=== PATIENT | male | born 1965 | race Caucasian/White ===

== ENCOUNTER 2017-02-03 21:22 | Emergency (ER) | payer BC ==
--- NOTE | 2017-02-03 21:50 | RAD ---
INDICATION: Intracranial injury COMPARISON: None TECHNIQUE: Noncontrast axial source images were acquired from the skull base to the vertex. FINDINGS: Ventricles/sulci: The ventricles and cisterns are normal in size and configuration for age. Incidental note is made of magna cisterna magna Brain parenchyma: There is no focal parenchymal finding, evidence of intracranial mass, or intracranial mass effect. Intracranial hemorrhage:None. Extra-axial spaces: There are no abnormal extra axial fluid collections or evidence of extra-axial mass. Calvarium: There is no calvarial fracture or other calvarial abnormality. Scalp: There is no evidence of scalp or extracalvarial soft tissue abnormality. Paranasal sinuses/mastoid: The paranasal sinuses and mastoid air cells are clear. Other: None. IMPRESSION: NEGATIVE EXAMINATION
--- NOTE | 2017-02-03 22:06 | RAD ---
INDICATION: Left shoulder pain COMPARISON: None TECHNIQUE: Routine frontal and Y views were obtained. FINDINGS: There is a displaced oblique fracture of the mid and distal clavicle with comminution and angular deformity. There are no other acute fractures. There is mild inflammatory or degenerative change about the inferior glenoid. There is soft tissue swelling about the clavicular fracture. IMPRESSION: CLAVICULAR FRACTURE DESCRIBED.
[2017-02-03 22:39] LABS: Hematocrit 44 % (42-52); Mean Corpuscular HGB Conc 34 g/dl (31-36); Mean Corpuscular Hemoglobin 32 pg (27-31); Mean Corpuscular Volume 91 fL (80-94); Mean Platelet Volume 7 um3 (7.4-10.4); Red Blood Count 4.78 10^6/ul (4.0-5.4); Red Cell Distribution Width 13 % (10.5-15); White Blood Count 15.8 10^3/ul (3.5-10.8)
[2017-02-03] MEDS ORDERED: Ibuprofen TAB* 400 MG PO ONE (22:44)
[2017-02-03] MEDS ORDERED: Ibuprofen TAB* 400 MG ONE (22:45)
[2017-02-03 22:54] LABS: Albumin 4.7 g/dL (3.2-5.2); BUN/Creatinine Ratio 15.5 (8-20); Calcium 9.8 mg/dL (8.6-10.3); EGFR African American 124.4 (>60); EGFR Non-African American 96.7 (>60); Globulin 3.1 g/dL (2-4); Total Bilirubin 0.8 mg/dL (0.2-1.0); Total Protein 7.8 g/dL (6.4-8.9)
--- NOTE | 2017-02-03 23:03 | RAD ---
INDICATION: Left clavicular fracture COMPARISON: Chest x-ray 2009; left shoulder same date TECHNIQUE: An AP portable view obtained at 2235 hours is submitted. FINDINGS: Bones/Soft Tissues: There is a left clavicular fracture described in a separate report. Cardiomediastinal: The cardiomediastinal silhouette is normal. Lungs: There are no infiltrates. Pleura: There are no pleural effusions. Other: None IMPRESSION: LUNGS CLEAR. NO PNEUMOTHORAX. LEFT CLAVICULAR FRACTURE.
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
[2017-02-04] MEDS ORDERED: Ketorolac INJ* 60 MG/2 ML VIAL IM ONE (01:52)
[2017-02-04] MEDS ORDERED: Ketorolac INJ* 30 MG/ML 1 ML VIAL IV PUSH ONE (02:34)
[2017-02-04 04:23] LABS: Benzodiazepine Urine Screen None Detected (None Detect)
[2017-02-04 05:09] VITALS: BP 150/99
--- NOTE | 2017-02-04 07:53 | RAD ---
HISTORY: Trauma, neck pain COMPARISONS: None TECHNIQUE: Multiple contiguous axial CT scans were obtained of the cervical spine without intravenous contrast, with coronal and sagittal multiplanar reformations. FINDINGS: BRAIN: The visualized brain is unremarkable CENTRAL CANAL: Evaluation of the central canal is limited on CT technique; however, there is no obvious canalicular mass or epidural hemorrhage. ALIGNMENT: The alignment is normal, without subluxation or dislocation. VERTEBRAL BODIES: The odontoid process is intact. The atlantoaxial intervals are symmetric. The vertebral bodies are normal in attenuation, without fracture. JOINTS: There is mild osteoarthritis of the uncovertebral and facet articulations. MUSCULATURE: Unremarkable INTERVERTEBRAL DISCS: There is mild diffuse loss of intervertebral disc height. AXIAL IMAGES: On axial images, there is no significant osseous neural foraminal narrowing or central canal stenosis. SOFT TISSUES: The visualized soft tissues of the neck are unremarkable. The prevertebral fat stripe is preserved. OTHER: None. IMPRESSION: NO ACUTE OSSEOUS INJURY TO THE CERVICAL SPINE.
[2017-02-04] MEDS ORDERED: Ibuprofen TAB* 600 MG PO ONE (09:32)
--- NOTE | 2017-02-04 11:42 | CONSULT ---
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 He underwent MHE and they wanted to keep him here in the FLEX until collateral info could be obtained. This morning Dr. Sales felt he was safe for D/C and he will be D/C'd in stable condition with a diagnosis of acute ETOH intoxication , clavicular fracture, LOC, and situational depression.
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
== END 2017-02-04 11:04 | disposition home or self-care (01) ==
LOC: ED 21:22 → UNDOADMOB 02-04 00:29 → MEDTELE 02-04 00:29 → ED 02-04 11:04
DX: S42.009A Fracture of unspecified part of unspecified clavicle, initial encounter for closed fracture (principal); S06.0X1A Concussion with loss of consciousness of 30 minutes or less, initial encounter; R55 Syncope and collapse; R45.851 Suicidal ideations; F10.129 Alcohol abuse with intoxication, unspecified; Y90.7 Blood alcohol level of 200-239 mg/100 ml; M25.512 Pain in left shoulder; V19.9XXA Pedal cyclist (driver) (passenger) injured in unspecified traffic accident, initial encounter; Y93.55 Activity, bike riding; Y92.9 Unspecified place or not applicable
CPT/HCPCS: 36415; 70450; 71010; 72125; 80053; 80307; 80320; 84484; 85025; 93005; 96372; 99284; A9270-GY; G0480

== ENCOUNTER 2017-02-15 09:18 | Day surgery (SDC) | payer BC ==
[~2017-02-15 09:18] MED LIST: Buffered Lidocaine 1% SYRIN* 3 ML/SYR SYRINGE INTRADERM ONE; Dexamethasone IV* 4 MG/ML 1 ML (4 MG) IV SLOW PU ONE; Famotidine IV* 10 MG/ML 2 ML (20 mg) IV ONE
[2017-02-15] MEDS ORDERED: Famotidine IV* 10 MG/ML 2 ML (20 mg) ONE (09:19)
[2017-02-15] MEDS ORDERED: Dexamethasone IV* 4 MG/ML 1 ML (4 MG) ONE (09:19)
[2017-02-15] MEDS ORDERED: ceFAZolin 2 GM PREMIX(*) 2 GM/50 ML BAG IVPB ONE (09:19)
[2017-02-15] MEDS ORDERED: Atracurium* 10 MG/ML 10 ML VIAL ONE (09:34)
[2017-02-15] MEDS ORDERED: Midazolam* 1 MG/ML 5 ML VIAL (5 MG) ONE (09:34)
[2017-02-15] MEDS ORDERED: fentaNYL* 50 MCG/ML 5 ML VIAL (250 MCG VIAL) ONE (09:34)
[2017-02-15] MEDS ORDERED: Ondansetron INJ* 2 MG/ML VIAL ONE (09:35)
[2017-02-15] MEDS ORDERED: Lidocaine 2% PF * 5 ML VIAL ONE (09:35)
[2017-02-15] MEDS ORDERED: Propofol* 10 MG/ML 20 ML BTL IV PUSH ONE (09:35)
[2017-02-15] MEDS ORDERED: Ketorolac INJ* 30 MG/ML 1 ML VIAL ONE (09:35)
[2017-02-15] MEDS ORDERED: fentaNYL* 50 MCG/ML 2 ML VIAL (100 MCG VIAL) ONE ×2 (10:35→13:51)
[2017-02-15] MEDS ORDERED: Glycopyrrolate IV* 0.2 MG/ML 1 ML VIAL ONE (10:42)
[2017-02-15] MEDS ORDERED: Desflurane* 240 ML INH ONE (10:43)
[2017-02-15] MEDS ORDERED: HYDROmorphone* 1 MG/ML 1 ML SYR IV PRN (12:02)
[2017-02-15] MEDS ORDERED: Ondansetron INJ* 2 MG/ML VIAL IV PRN (12:02)
[2017-02-15] MEDS ORDERED: Scopolamine 1.5 mg* PATCH TRANSDERM PRN (12:02)
[2017-02-15] MEDS ORDERED: DiMENhydriNATE IV* 50 MG/ML VIAL IV PUSH PRN (12:02)
[2017-02-15] MEDS ORDERED: Bupivacaine 0.5% W/EPI SDV* 30 ML VIAL ONE (13:14)
[2017-02-15] MEDS: fentaNYL* 50 MCG/ML 2 ML VIAL (100 MCG VIAL) IV PRN ×2 (13:52→13:55)
[2017-02-15] MEDS: oxyCODONE/Acetamin 5/325 MG* TAB PO PRN ×2 (13:57→14:16)
[2017-02-15] MEDS ORDERED: oxyCODONE/Acetamin 5/325 MG* TAB ONE ×2 (13:57→14:15)
--- NOTE | 2017-02-15 13:58 | RAD ---
INDICATION: Traumatic fracture of the left clavicle, operative reduction and internal fixation. COMPARISON: Comparison is made with a prior x-ray study of the left clavicle from February 07, 2017. TECHNIQUE: 52 seconds of intermittent fluoroscopic guidance were provided and 5 spot films of the left clavicle were obtained in the operating room. FINDINGS: The films demonstrate placement of a metallic plate present along the superior aspect of the left clavicle and inferior aspect of the acromion process transfixed with multiple screws. The bones are in normal alignment. IMPRESSION: INTRAOPERATIVE CONTROL FILMS. CPT II Codes: 6045F
[2017-02-15 15:01] VITALS: BP 139/96
--- NOTE | 2017-02-17 19:02 | OP ---
OPERATIVE REPORT: DATE OF OPERATION: 02/15/17 DATE OF : 67 SURGEON: Ed Hills MD ENGINEERING AGENT: TAD Alvarado ANESTHESIOLOGIST: Joseph Beth MD ANESTHESIA: General anesthesia, local anesthesia. PRE-OP DIAGNOSIS: Left lateral/distal clavicle fracture. POST-OP DIAGNOSIS: Left lateral/distal clavicle fracture. OPERATIVE PROCEDURE: Open reduction internal fixation, left lateral/distal clavicle fracture with acromion hook plate. 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 The patient was mountain biking with his son and a friend. The patient had an unwitnessed fall, which he does not remember and was diagnosed with concussion and a left lateral clavicle fracture in the emergency department. The patient is fortunate that he has not had any post- concussive symptoms besides some dizziness, light, once. The patient is active and athletic, as he sails, and has aspirations to sail around the world at some point. He also rows and sculls. He bikes and cross- country skis. He wanted to make particular mention of the fact that he is an aggressive cross-country skier with tall poles that require a very full range of motion in the shoulder and a forceful flexion and extension of the shoulder. 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 Jesse Funez, and involved ORIF of the right scaphoid, elbow lateral epicondyle and tendon transfers for loss of extensor tendon function. The patient states that the amputation was even considered at some point prior to all these surgeries. The patient is happy that he has mostly functional right hand, but that injury left him even more reliant on his left upper extremity. Preoperative x-ray imaging demonstrated a comminuted fracture of the left lateral clavicle with significant displacement. There appeared at least 2 cm of displacement between the principal fracture fragments. It appeared to be a type 5 lateral clavicle fracture, comminuted, with medial shaft fragments, and inferior fragment, likely attached to one or two of the coracoclavicular ligaments, and a lateral most fragment of the distal clavicle. There was a hint of comminution to that most lateral fragment and to get a better visualization of this fragment to determine pre-op the most likely proper surgical management intraop, I obtained a CT scan as well, which showed that the lateral most fragment was in fact 2 or 3 fragments of bone. As I measured the length of this lateral fragment most superiorly, it was clear that it was short of 7 mm, so that a superior plate and screw with or without tape in all likelihood would not be a feasible solution surgically. Therefore with surgery , the patient will require an acromion hook plate. The patient and I spoke at length at 2 appointments about the possible treatment of this injury without and with surgery. I did stress the elective nature of the surgery and that, while 30% to 50% of these fractures result in bony nonunion, many of those nonunions are pain free. However, given the patient's young age and high function, both with activities of daily living and certainly with athletics, the significant displacement of this fracture site would likely mean reduced function and possibly discomfort and limitations if managed nonoperatively. Therefore, we opted for surgical management of this fracture. I discussed the significant list of possible complications of this surgery, including nerve and blood vessel injury, nonunion, hardware complications. Also included specific to the acromion hook plate including acromion osteolysis, rotator cuff injury, AC joint arthritis, and hardware pull- out. The patient opted to proceed with surgery. ANTIBIOSIS: Ancef 2 g IV. IV FLUIDS: See Anesthesia note. COMPLICATIONS: None. ESTIMATED BLOOD LOSS: Minimal. SPECIMEN: None. IMPLANTS: Synthes 6-hole locking acromion hook plate. 6 screws, 3.5 mm through the plate, non-locking and locking. DESCRIPTION OF THE PROCEDURE: Preoperative written consent was obtained. Operative extremity was marked in preoperative holding. The patient was taken to the operating room and placed supine on operating room table. The patient was sedated and intubated. An extension had been placed on the table so that a head rest would fit in. The bed was positioned in the beach-chair position. A strap was placed above the torso. Many pillows were placed under the thighs to enable hip flexion. The beach-chair position was such that the torso was approximately 70 degrees flexed compared with the ground. The left shoulder was prepped and draped. Surgical time-out was performed. I used a marking pin to nam the medial and lateral fragments of bone, the AC joint, the acromion, and the coracoid process, although it was difficult to feel the coracoid process. I then made a skin incision with a 10 blade, overlying the mid and distal clavicle and proceeding to just lateral of the AC joint. Incision was carried down through a subcutaneous tissue with a deep #10 blade. Then, dissection was continued with cutting function of an insulated Bovie electrocautery tip. Hemostasis was established using Bovie electrocautery as well as sponges and pressure. I dissected down through the platysmas and the deltotrapezial fascia using the Bovie electrocautery. I dissected down on to the clavicle fragments. I cleared them off using Bovie electrocautery and a wood-handled periosteal elevator. The medial fragment as had been visualized on imaging was superiorly displaced. The lateral most fragment of clavicle was indeed incredibly small, approximately 5 mm by sight, although I did not measure it. It was incredibly small and seemed comminuted to the appearance and touch. I localized the AC joint using a spinal needle, but I did not dissect down on to it and certainly did not dissect into it. The acromion was palpable posterior to the AC joint, but I did not have to cut through any fascia to get around it. My finger essentially easily passed down under the acromion there after I had had made my deltotrapezial dissection. With my fingers, reduced the clavicle and saw that it was reducible. I identified the inferior fragments of bone as well. Irrigation. Debridement of the medial and inferior bone fragments as well as the lateral with curette and rongeur. Looking at the bony fragments, it was clear that superior plate and screws would not be feasible even with coracoclavicular tape. Therefore, I decided to proceed forward with the acromion hook plate. I used the Synthes 15-mm sizer and found that 15 mm was the correct depth of hook plate to use as it nicely reduced the bony fragments appropriately. This was preferable to the 12- and 18-mm sizers. While [employer] did not have template for the plate lengths, given the very medial extent of the fracture line between the inferior and medial bone fragments, I choose a long plate, a 6- hole hook plate. There were concerns that if I chose a 7-hole plate, a significant amount of plate bending would be required to fit the clavicle's shape. Therefore, individually packed 6-hole plate was opened and was placed in the wound. It nicely reduced the fracture fragments. Two nonlocking screws were placed in two of the medial most holes in the plate. I then obtained images, AP view, serendipity view, and the most vertical x-ray views I could obtain using C-arm, brought in from directly posterior to the shoulder. Reduction looked excellent in every plane. On one view, there was a small amount of space between the inferior and medial fracture fragments, but the overall alignment was excellent and there was no way yo improve upon that trace gapping between the medial and inferior fragments. The remainder of the screw holes overlying the medial and inferior fragments was filled with nonlocking and locking screws. I considered placement of screws into the lateral fragment , but given the very small size of the lateral fragment and its comminution, I did not want to explode it and cause more comminution by placing a screw through it. It should be mentioned that I confirmed digitally and visually perfect reduction of the lateral and medial fracture fragments both before and after the acromion hook plate was placed and was very satisfied with that. Also , radiographically it looked like an excellent reduction. Final x-ray films were taken and saved of the acromion hook plate and the [address] I then tested the range of motion of the shoulder as this is a recommended step. I was able to obtain 90 degrees as external rotation with the shoulder in the abducted position. I was able to abduct to at least 110 degrees. Further abduction was limited by my draping, not by the plate in the shoulder. Irrigation. The deltotrapezial fascia was closed with figure-of-8 stitches using Vicryl 0 suture. The subcutaneous tissue was closed with buried simple stitches using Vicryl 2-0 suture. The subcuticular layer was closed with a running stitch using Monocryl 4-0 suture. Mastisol, Steri-Strips, 4x4s, Tegaderm. The patient was returned to a supine position and awakened and extubated. DISPOSITION: Postoperatively, the patient was to get Percocet, aspirin, and Keflex, and follow up with me 10 to 14 days postoperatively. [id number]/[facility] #: [id number] MTDD
[2017-02-18] MEDS ORDERED: Scopolomine PATCH Remove* 1 NOTE MISC PATCH OFF ONE (12:03)
== END 2017-02-15 16:29 | disposition home or self-care (01) ==
LOC: OR 09:18
PROVIDERS: ATTEND Orthopaedic Surgery
DX: S42.032A Displaced fracture of lateral end of left clavicle, initial encounter for closed fracture (principal); V18.0XXA Pedal cycle driver injured in noncollision transport accident in nontraffic accident, initial encounter; Y93.55 Activity, bike riding; Y92.89 Other specified places as the place of occurrence of the external cause
CPT/HCPCS: 76001; A9270-GY; C1713; C1776; J0690; J1100; J1885; J2250; J2405; J2704; J3010

== ENCOUNTER 2017-07-12 09:57 | Day surgery (SDC) | payer BC ==
[~2017-07-12 09:57] MED LIST changes: +Buffered Lidocaine 0.9% SYRIN* 5 ML/SYR SYRINGE INTRADERM ONE; -Buffered Lidocaine 1% SYRIN* 3 ML/SYR SYRINGE INTRADERM ONE; -Dexamethasone IV* 4 MG/ML 1 ML (4 MG) IV SLOW PU ONE
[2017-07-12] MEDS ORDERED: Famotidine IV* 10 MG/ML 2 ML (20 mg) ONE (10:04)
[2017-07-12] MEDS ORDERED: Buffered Lidocaine 0.9% SYRIN* 5 ML/SYR SYRINGE ONE (10:04)
[2017-07-12] MEDS ORDERED: ceFAZolin 2 GM PREMIX (*) 50 ML IVPB ONE (10:04)
[2017-07-12] MEDS ORDERED: Ondansetron INJ* 2 MG/ML VIAL IV PRN (10:07)
[2017-07-12] MEDS ORDERED: Scopolamine 1.5 mg* PATCH TRANSDERM PRN (10:07)
[2017-07-12] MEDS ORDERED: PROCHLORPERAZINE INJ 5 MG/ML 2 ML VIAL IV PRN (10:07)
[2017-07-12] MEDS ORDERED: fentaNYL* 50 MCG/ML 2 ML VIAL (100 MCG VIAL) IV PRN (10:07)
[2017-07-12] MEDS ORDERED: oxyCODONE/Acetamin 5/325 MG* TAB PO PRN (10:07)
[2017-07-12] MEDS ORDERED: Morphine INJ* 2 MG/ML 1 ML CARPUJECT IV PRN (10:07)
[2017-07-12] MEDS ORDERED: fentaNYL* 50 MCG/ML 2 ML VIAL (100 MCG VIAL) ONE (11:21)
[2017-07-12] MEDS ORDERED: KETAMINE HCL* 50 MG/ML 10 ML VIAL ONE (11:22)
[2017-07-12] MEDS ORDERED: Midazolam* 1 MG/ML 5 ML VIAL (5 MG) ONE (11:22)
[2017-07-12] MEDS ORDERED: Propofol* 10 MG/ML 20 ML BTL IV PUSH ONE (12:51)
[2017-07-12] MEDS ORDERED: Lidocaine 2% PF * 5 ML VIAL ONE ×2 (12:51)
[2017-07-12] MEDS ORDERED: Dexamethasone IV* 4 MG/ML 1 ML (4 MG) ONE (12:51)
[2017-07-12] MEDS ORDERED: Ondansetron INJ* 2 MG/ML VIAL ONE (12:51)
[2017-07-12] MEDS ORDERED: Ketorolac INJ* 30 MG/ML 1 ML VIAL ONE (12:51)
[2017-07-12] MEDS ORDERED: Morphine INJ* 10 MG/ML 1 ML CARPUJECT ONE (12:53)
[2017-07-12] MEDS ORDERED: Lidocaine 1.5% EPI 1:200,000* 30 ML SDV ONE (13:08)
[2017-07-12] MEDS ORDERED: hydrALAZINE IV* 20 MG/ML VIAL ONE (14:12)
--- NOTE | 2017-07-12 14:22 | RAD ---
INDICATION: Removal of left clavicle fixation hardware COMPARISONS: July 12, 2017 TECHNIQUE: Fluoroscopy was provided for a surgical procedure. Total fluoroscopy time is: 18 seconds FINDINGS: Spot images demonstrate removal of the fixation hardware of the left clavicle. IMPRESSION: FLUOROSCOPY WAS PROVIDED FOR A SURGICAL PROCEDURE CPT II Codes: 6045F
[2017-07-12 16:04] VITALS: BP 138/90
--- NOTE | 2017-07-14 03:28 | OP ---
DATE OF OPERATION: 07/12/17 [facility] DATE OF : 67 SURGEON: Ed Hills MD ENGINEERING SPECIALIST: TAD Herndon. A physician temporary administrative assistant was required for the length of the procedure for retraction, manipulation and instrumentation. ANESTHESIOLOGIST: Dr. Dorian Garcia. ANESTHESIA: General endotracheal anesthesia, local anesthesia, 10 mL of 1.5% lidocaine with epinephrine. PRE-OPERATIVE DIAGNOSES: 1. Status post open reduction internal fixation left lateral clavicle fracture , displaced, with an acromion hook plate. 2. Retained hardware left acromion hook plate. POST-OPERATIVE DIAGNOSES: 1. Status post open reduction internal fixation left lateral clavicle fracture , displaced, with an acromion hook plate. 2. Retained hardware left acromion hook plate. OPERATIVE PROCEDURE: Left shoulder, removal of hardware, deep. ANTIBIOSIS: 2 g Ancef IV. IV FLUIDS: 1500 mL crystalloid. COMPLICATIONS: None. ESTIMATED BLOOD LOSS: Less than 50 mL. SPECIMEN: Removed Synthes lateral acromion plate as well as six screws that had been placed through the plate. This was kept with plans for processing and return to the patient. IMPLANTS: No new implants. 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 That method of fixation was chosen, rather than a superior clavicle plate plus or minus coracoclavicular fixation, secondary to the extremely comminuted nature of the lateral most aspect of the clavicle that is the reason the acromion hook plate was chosen. Prior to that for surgery, I discussed with the patient that should an acromion hook plate be required, it would need to be removed from 4 to 6 months postoperatively. I had followed the patient after the first procedure. He has been anxious to have the plate removed. His range of motion and strength were excellent, although he did not quite have full range of motion returned with only 160 degrees of forward flexion at the last preoperative clinic visit. We had discussed removing the plate after a sufficient amount of time had passed to allow sufficient healing for the clavicle to be stable, but now waiting so long , such as more than six months, complications such as persistent shoulder stiffness or acromial erosion, could occur. At the last preoperative clinic visit, which was 4 to 5 weeks preoperative, the patient still had some lucency on x-ray but he had no tenderness to palpation whatsoever with vigorous manipulation by me on physical examination and so I decided that just under 5 months, we would allow for adequate healing for the plate to be removed. DESCRIPTION OF PROCEDURE: Preoperative written consent was obtained. As I have discussed in my final clinic visit, so too I discussed the date of surgery , potential complications including bleeding, infection, nerve or blood vessel injury, hardware complications, refracture, shoulder stiffness, shoulder arthritis. Operative extremity was marked in preoperative holding. The patient was taken back to the operating room and placed supine on operating room table. The patient was sedated and intubated. The operative table of choice had an extension with a head rest. The operative table was converted into a beach chair position. Much attention was paid to the position of the head and neck by both the surgeon and the anesthesiologist. The left shoulder was prepped with ChloraPrep. It was then draped. Prior to prep and drape, a C-arm had been brought in to confirm that excellent x-rays could be taken. Surgical time-out was performed. The surgical incision scar was identified by the surgeon. I placed dots over the length of the incision and cross-hatches prior to making my surgical incision. I made an identical skin incision to that made at the first surgery. I sharply dissected from skin to clavicle with a skin and then deep knife. There was not significant bleeding at all and electrocautery was barely required. I got down to clavicle. There was some callus, overlying the superior aspect of the clavicular plate somewhat surprisingly. The plate was visualized after I removed some of that early callus from the superior aspect of the plate, with a rongeur and a periosteal elevator. The length of the plate was visualized. Next, I removed the nonlocking and locking screws from the plate. There was no difficulty in doing so and the full length of screws were removed. The plate was then mobilized medially. It was still engaged about the acromion. Therefore with the periosteal elevator, I released it slightly more laterally around it. Then the plate was easily removed. With the plate removed, I then brought the C-arm director of strategic sourcing in and took the left clavicle x-rays in a variety of shoulder positions. I took x-rays with the shoulder in a neutral position. I then took clavicle x-rays with the shoulder forward flexed maximally externally and internally rotated and adducted. With all these motions, there was no displacement at the former fracture sites. There was some lucency still visible between the long inferior fracture fragment and the more medial piece. However, there is no significant diastasis there and no increase in diastasis with any of the movements of the shoulder. I thought that the overall contour of the clavicle looked excellent, with the superior aspect of the clavicle, a perfect line is formed but being attached to the undersurface of the acromial hook plate. The AC joint itself looked wide open but no clear arthritic changes on x-ray. I then removed some fibrous tissue about the superior aspect of the clavicle around the former sites of screw holes. This cleared off the superior aspect of the clavicle nicely. I then used a small curette and curetted all fixed screw holes in the clavicle to try to stimulate more aggressive bone in-growth into this holes. I tried manipulating the clavicle, pushing it inferior, anterior and posterior and it clearly moved as one piece and there was no movement at the former fracture sites. This made me feel confident about the stability of the lateral clavicle at its fracture site, despite the small amount of lucency still visible on x-ray. I next irrigated profusely the wound. I did this with buckets of saline likely 1 to 2 L of fluid. I did this to avoid possible heterotopic ossification that I had seen in other surgeons lateral clavicle fractures treated with acromial hook plates. This was also of course to minimize the risk of infection. I assessed the deltotrapezial fascia. I released the deltotrapezial fascia slightly, a millimeter here and there off of the clavicle to facilitate a robust closure just superior to the clavicle. I closed the deltotrapezial fracture layer with figure-of-8 stitches using Vicryl 0 suture. Irrigation. Next, closed some more superficial deltotrapezial fascia as well as platysma with figure-of-8 stitches using Vicryl 2-0 suture. I next closed the subcutaneous layer with buried simple stitches using Vicryl 3-0 suture. Subcuticular layer was then closed with a running stitch using Monocryl 4-0 suture. Mastisol followed by Steri-Strips. A 4 x 4 dry sterile dressings followed by Tegaderm. Drapes were taken down. A sling was applied. The patient was awakened and extubated. Two additional points about the procedure. There was some amount of increased soft callus about the anterior aspect of the lateral clavicle. This may or may not have been visible on x-ray but I did not want to take that down, removed it as it was certainly helping healing at the fracture site. Another observation was that none of the Vicryl suture from my index operation was visible, which was confirming in terms of the benefits of using an absorbable suture. DISPOSITION: The patient will follow up with me 10 to 14 days postoperative in the office. He will receive Percocet for pain control. He is in a sling. I spoke to a friend of his who is waiting for him in the holding area about avoidance of any sports using the upper arm for a period of one to two months to allow for the final amount of healing of that lateral clavicle to proceed. I will discuss this with the patient more in the office. For now, he will use the sling as needed for comfort. [id number]/[facility] #: [id number] MTDD
[2017-07-15] MEDS ORDERED: Scopolomine PATCH Remove* 1 NOTE MISC PATCH OFF ONE (10:09)
== END 2017-07-12 16:07 | disposition home or self-care (01) ==
LOC: OR 09:57
PROVIDERS: ATTEND Orthopaedic Surgery
DX: S42.032D Displaced fracture of lateral end of left clavicle, subsequent encounter for fracture with routine healing (principal); X58.XXXD Exposure to other specified factors, subsequent encounter; Y92.9 Unspecified place or not applicable; E78.00 Pure hypercholesterolemia, unspecified; F32.9 Major depressive disorder, single episode, unspecified
CPT/HCPCS: 76001; 88300; J0360; J0690; J1100; J1885; J2250; J2270; J2405; J2704; J3010

== ENCOUNTER 2020-01-09 13:27 | Emergency (ER) | payer BC ==
--- NOTE | 2020-01-09 14:31 | UC ---
Respiratory Complaint HPI - HPI Summary HPI Summary: 54 yo male presents with flu-like symptoms. He tells me that 8 days ago he developed fever, body aches, fatigue, and dry cough. He has been taking tylenol/ ibuprofen with good relief. 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 He tested negative for the flu and strep at his office. Given his occupation, he became concerned about COVID and contacted the health department, who recommended testing. Currently he denies fever, sore throat, sinus symptoms, SOB , chest pain, abdominal pain, n/v/d. - History of Current Complaint Stated Complaint: SORE THROAT, SHORT OF BREATH Time Seen by Provider: 01/09/20 14:31 Hx Obtained From: Patient Onset/Duration: Sudden Onset Severity Initially: Moderate Severity Currently: Mild Pain Intensity: 5 Pain Scale Used: 0-10 Numeric Character: Cough: Nonproductive - Allergies/Home Medications Allergies/Adverse Reactions: Allergies Allergy/AdvReac Type Severity Reaction Status Date / Time rodents Allergy Hives Uncoded 01/09/20 15:20 Home Medications: Home Medications Atorvastatin* [Lipitor 10 MG*] 1 tab PO QAM 02/13/17 [History Confirmed 07/12/17 ] Escitalopram * [Lexapro 10 mg (NF)] 15 mg PO QAM 02/13/17 [History Confirmed ] Ibuprofen [Ibuprofen 200 MG] 3 tab PO Q6H PRN 02/13/17 [History Confirmed ] Bupropion HCl ER 300 mg PO DAILY 05/23/18 [History Confirmed 05/30/18] Lisinopril [Zestril] 10 mg PO DAILY 01/09/20 [History Confirmed 01/09/20] PMH/Surg Hx/FS Hx/Imm Hx Endocrine History: Dyslipidemia Cardiovascular History: Hypertension Psychological History: Anxiety, Depression Other History Of: Negative For: Anticoagulant Therapy - Surgical History Surgical History: None Surgery Procedure, Year, and Place: orif lef clavilcle. 02/15/17. uretheral stricture 1987. several surgeries right wrist including tendon transfer, 1988 - Family History Known Family History: Positive: Cardiac Disease - Maternal grandparents - Social History Lives: With Family Alcohol Use: Occasionally Alcohol Amount: 10 per week Substance Use Type: None Smoking Status (MU): Never Smoked Tobacco Review of Systems All Other Systems Reviewed And Are Negative: No Constitutional: Positive: Fever, Fatigue, Other - Body aches Skin: Positive: Negative Eyes: Positive: Negative ENT: Positive: Negative Respiratory: Positive: Cough Cardiovascular: Positive: Negative Gastrointestinal: Positive: Negative Genitourinary: Positive: Negative Neurovascular: Positive: Negative Neurological/Mental Status: Positive: Negative Psychological: Positive: Negative Physical Exam - Summary Physical Exam Summary: GENERAL: NAD. WDWN. No pain distress. SKIN: No rashes, sores, lesions, or open wounds. HEENT: Head: AT/NC Eyes: EOM intact. Conjunctiva clear without inflammation or discharge. Ears: Hearing grossly normal. TMs intact, no bulging, erythema, or edema. Nose: Nasal mucosa pink and moist. NTTP maxillary and frontal sinus. Throat: Posterior oropharynx without exudates, erythema, or tonsillar enlargement. Uvula midline. NECK: Supple. Nontender. No lymphadenopathy. CHEST: CTAB. No r/r/w. No accessory muscle use. Breathing comfortably and in no distress. CV: RRR. Pulses intact. Cap refill <2seconds NEURO: Alert. PSYCH: Age appropriate behavior. Triage Information Reviewed: Yes Vital Signs: Vital Signs: Temp Pulse Resp BP Pulse Ox 97.7 F 102 18 130/89 96 01/09/20 15:21 01/09/20 15:21 01/09/20 15:21 01/09/20 15:21 01/09/20 15:21 Laboratory Tests 01/09/20 01/09/20 15:17 15:19 Influenza A (Rapid) Negative Influenza B (Rapid) Negative Group A Strep Rapid Negative Vital Signs Reviewed: Yes Respiratory Course/Dx - Course Course Of Treatment: POC strep and flu negative. COVID testing sent at health department's recommendation. Pt was examined utilizing droplet PPE as per CDC guidelines. - Differential Dx/Diagnosis Provider Diagnosis: Viral syndrome Discharge ED - Sign-Out/Discharge Documenting (check all that apply): Patient Departure All imaging exams completed and their final reports reviewed: No Studies - Discharge Plan Condition: Stable Disposition: HOME Patient Education Materials: Viral Syndrome (ED) Referrals: Joseph Pizarro MD [Primary Care Provider] - Additional Instructions: The health department will follow up with you - Billing Disposition and Condition Condition: STABLE Disposition: Home
[2020-01-09 15:24] VITALS: BP 130/89
[2020-01-09 15:31] LABS: Influenza A Molecular Negative (Negative); Influenza B Molecular Negative (Negative)
--- OUTSIDE RECORDS SUMMARY | 2020-01-09 15:50 | XMS REPORT | Continuity of Care Document ---
:1965 External Reference #:[id number] Author Name Rukhsana Ballard O.D. Address [address] [place] [address] Care Team Providers Name Role Phone Joseph Pizarro M.D. 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 Onset: 11/04/2019 Social History Type Date Description Comments Sex Unknown ETOH Use Currently consumes alcohol Tobacco Use Start: Unknown Patient has never smoked Recreational Drug Use Denies Drug Use Smoking Status Reviewed: 12/18/19 Patient has never smoked Allergies, Adverse Reactions, Alerts Active Allergies Reaction Severity Comments Date Rodents Moderate 11/04/2019 Medications Active Medications SIG Qnty Indications Ordering Provider Date Bupropion Hydrochloride ER (SR) Joseph Pizarro M.D. 100mg Tablets ER 12HR Bupropion Hydrochloride ER (XL) Joseph Pizarro M.D. 300mg Tablets ER 24HR Atorvastatin Calcium Haroldo Bhatti M.D. 10mg Tablets Escitalopram Oxalate Haroldo Bhatti M.D. 5mg Tablets Lisinopril Haroldo Bhatti M.D. 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 If you have any changes in your floaters or flashing lights, please contact this office.Follow up:1 year You can expect to have your eyes dilated at your next visit. If Dr. Ballard orders any additional testing, it may require extra time. We recommend that you bring sunglasses, as dilation drops often make you light sensitive until they wear off. We always recommend you bring someone to drive you home if you are uncomfortable driving with your eyes dilated. If you have any questions before your next visit, feel free to call our office at . Functional Status Description No Information Available Mental Status Description No Information Available Referrals Description No Information Available
== END 2020-01-09 16:00 | disposition home or self-care (01) ==
LOC: UCEAST 13:27
DX: B34.9 Viral infection, unspecified (principal); R52 Pain, unspecified; R53.83 Other fatigue; R05 Cough; J02.9 Acute pharyngitis, unspecified; R06.02 Shortness of breath; E78.5 Hyperlipidemia, unspecified; I10 Essential (primary) hypertension; F41.9 Anxiety disorder, unspecified; F32.9 Major depressive disorder, single episode, unspecified; Z79.899 Other long term (current) drug therapy
CPT/HCPCS: 87651; 99211; G0463